=== PATIENT | female | born 1945 | race Caucasian/White ===

== ENCOUNTER → 2021-06-05 | Outpatient (REF) ==
[2021-06-05 12:25] LABS: POTASSIUM 3.8 mmol/L (3.5-5.1)
[2021-06-05 12:26] LABS: CALCIUM 9.2 mg/dL (8.3-10.5)
[2021-06-05 12:33] LABS: MAGNESIUM 2.11 mg/dL (1.60-2.60)
== END ==
LOC: LAB 09:59
PROVIDERS: Internal Medicine
DX: Z01.89 Encounter for other specified special examinations (principal)